=== PATIENT | female | born 1960 | race African-American/Black ===

== ENCOUNTER 2022-10-28 15:10 | Emergency (ER) | payer MEDICAID, OTHER ==
[~2022-10-28] VITALS: Ht 170.2 cm; Wt 73.0 kg
[2022-10-28 15:18] VITALS: BP 133/86; PULSE 88; RESP 18; TEMP 98.2; O2SAT 99
[2022-10-28 16:07] LABS: BASOPHILS % 0.6 % (0.0-2.0); EOSINOPHILS % 0.9 % (0.0-5.0); HEMATOCRIT. 37.3 % (36.0-48.0); HEMOGLOBIN. 12.1 g/dL (12.0-16.0); LYMPHOCYTES % 25.8 % (20.0-50.0); MEAN CORPUSCULAR HEMOGLOBIN 28.2 pg (28.0-32.0); MEAN CORPUSCULAR HGB CONC 32.4 g/dL (31.0-37.0); MEAN CORPUSCULAR VOLUME 87.2 fL (81.0-99.0); MEAN PLATELET VOLUME 9.5 fl (7.4-10.4); MONOCYTES % 7.1 % (2.0-8.0); NEUTROPHILS % 65.6 % (40.0-76.0); PLATELET 158 x1000/uL (130-400); RED BLOOD CELL COUNT 4.27 mill/uL (4.2-5.4); RED CELL DISTRIBUTION WIDTH 14.8 % (11.6-14.6); WHITE BLOOD COUNT 3.9 x1000/uL (4.5-11.0)
[2022-10-28 16:14] LABS: CHLORIDE 107 mEq/L (98-107); INDEX HEMOLYSI 1 (1-3); INDEX ICTERIC 1 (1-4); INDEX LIPEMIC 1 (1-3); POTASSIUM 3.5 mEq/L (3.5-5.1); SODIUM 139 mEq/L (136-145)
[2022-10-28 16:22] LABS: INR 1.2; PROTHROMBIN TIME 12.4 sec (9.6-11.0)
[2022-10-28 16:25] LABS: ALANINE AMINOTRANSFERASE 16 IU/L (13-61); ALBUMIN 3.3 g/dL (3.4-5.0); ASPARTATE AMINOTRANSFERASE 17 IU/L (15-37); BILIRUBIN TOTAL 0.7 mg/dL (0.1-1.0); CALCIUM 8.7 mg/dL (8.5-10.1); CARBON DIOXIDE 27 mEq/L (21-32); CREATININE 0.8 mg/dL (0.6-1.3); GLUCOSE 91 mg/dL (70-105); NT PRO B-TYPE NATRIURETIC PEP 241 pg/mL (5-125); PROTEIN TOTAL 7.3 g/dL (6.0-8.3); TROPONIN I HIGH SENSITIVITY 5 ng/L (<54); UREA NITROGEN BLOOD 17 mg/dL (7-21)
[2022-10-28] MEDS ORDERED: FAMOTIDINE 20MG TABLET PO SCH (16:45)
[2022-10-28] MEDS ORDERED: MAGNESIUM/ALUMINUM HYDROXIDE/SIMETHICONE 30ML UDC PO ONE ×2 (16:45→20:00)
[2022-10-28] MEDS ORDERED: ONDANSETRON 4MG ODT PO ONE (16:45)
[2022-10-28 17:30] LABS: TROPONIN I HIGH SENSITIVITY 4 ng/L (<54)
[2022-10-28 17:33] LABS: CLARITY URINE CLEAR (CLEAR); COLOR URINE YELLOW (YELLOW); GLUCOSE URINE NEGATIVE (NEGATIVE); KETONES URINE 1+ (NEGATIVE); LEUKOCYTE ESTERASE URINE NEGATIVE (NEGATIVE); NITRITE URINE POSITIVE (NEGATIVE); OCCULT BLOOD URINE NEGATIVE (NEGATIVE); PH URINE 5.5 (4.5-8.0); PROTEIN URINE NEGATIVE (NEGATIVE); SPECIFIC GRAVITY URINE 1.021 (1.005-1.030)
[2022-10-28 17:35] LABS: YEAST URINE NONE SEEN
[2022-10-28 18:00] LABS: BACTERIA URINE 3+; RBC URINE 0-2 /hpf (0-2); SQUAMOUS EPITHELIAL CELL URINE 1+ /lpf (RARE/1+)
[2022-10-28] MEDS ORDERED: CEFP200T13 MT (18:39)
[2022-10-28] MEDS ORDERED: CEFTRIAXONE SODIUM 1 G/VIAL IM ONE (18:45)
[2022-10-28] MEDS ORDERED: ONDANSETRON 4MG ODT PO SCH (20:00)
[2022-10-28] MEDS ORDERED: CEFTRIAXONE SODIUM 1 G/VIAL IM SCH (20:00)
== END 2022-10-28 20:11 | disposition home or self-care (01) ==
LOC: ER 15:10
DX: N39.0 Urinary tract infection, site not specified (principal); R55 Syncope and collapse; I10 Essential (primary) hypertension
CPT/HCPCS: 99285; 70450; 71045; 80053; 81003; 83880; 83690; 85025; 85610; 84484; 36415; 93005; 96372; Q0162; J0696

== ENCOUNTER 2023-12-24 22:15 | Emergency (ER) | payer MEDICAID ==
[~2023-12-24] VITALS: Ht 165.1 cm; Wt 101.0 kg
[~2023-12-24 22:15] MED LIST: AMLO2.5T2 PO; ASPI-1406 PO; ATOR10TA PO; METO25TA6 PO; SENN1TAB35 PO
[2023-12-24 22:29] VITALS: O2SAT 100
[2023-12-24 22:50] LABS: CLARITY URINE CLEAR (CLEAR); COLOR URINE YELLOW (YELLOW); GLUCOSE URINE NEGATIVE (NEGATIVE); KETONES URINE NEGATIVE (NEGATIVE); LEUKOCYTE ESTERASE URINE TRACE (NEGATIVE); NITRITE URINE POSITIVE (NEGATIVE); OCCULT BLOOD URINE NEGATIVE (NEGATIVE); PH URINE 5.5 (4.5-8.0); PROTEIN URINE NEGATIVE (NEGATIVE); SPECIFIC GRAVITY URINE 1.028 (1.005-1.030)
[2023-12-24 23:16] LABS: BACTERIA URINE 3+; RBC URINE NONE SEEN /hpf (0-2); SQUAMOUS EPITHELIAL CELL URINE 1+ /lpf (RARE/1+); YEAST URINE NONE SEEN
[2023-12-25] MEDS ORDERED: ACET-2708 MT (00:43)
[2023-12-25] MEDS ORDERED: CEPH500C2 MT (00:43)
[2023-12-25 01:00] VITALS: BP 155/91; PULSE 68; RESP 17; TEMP 36.55848; O2SAT 99
== END 2023-12-25 01:30 | disposition home or self-care (01) ==
LOC: ER 22:15
DX: M25.561 Pain in right knee (principal); I25.2 Old myocardial infarction; I10 Essential (primary) hypertension; I51.9 Heart disease, unspecified; Z68.37 Body mass index [BMI] 37.0-37.9, adult; Z79.899 Other long term (current) drug therapy
CPT/HCPCS: 73562; 81003; 93971; 99284